=== PATIENT | female | born 1940 | race Caucasian/White ===

== ENCOUNTER 2017-01-17 10:55 | Outpatient (CLI) | payer MEDICARE, BC ==
--- NOTE | 2017-01-17 12:13 | RAD ---
FOUR VIEWS LEFT KNEE: Comparison: None. History: Left knee pain. FINDINGS: Four views of the left knee shows no evidence of acute fracture or dislocation. There are moderate tr icompartmental osteophytes consistent with osteoarthritis. Calcifications in the mid ===== are second orbert to CPPD. No knee effusion is seen. IMPRESSION: 1. Moderate left knee osteoarthritis without acute osseous abnormality. 2. CPPD. POS: [facility]
== END 2017-01-17 10:56 | disposition home or self-care (01) ==
LOC: NAV RAD 10:55
DX: M25.562 Pain in left knee (principal); M17.12 Unilateral primary osteoarthritis, left knee; M11.262 Other chondrocalcinosis, left knee